=== PATIENT | female | born 1970 | race Caucasian/White ===

== ENCOUNTER 2022-09-14 08:13 | Day surgery (SDC) | payer OTHER ==
[2022-09-12 15:54] VITALS: BMI 28.2
[~2022-09-14 08:13] MED LIST: LACTATED RINGERS 1,000 ML IV SCH; LIDOCAINE 1% (10MG/ML) FOR IV START INTRADERMA PRN
[2022-09-14 08:34] VITALS: TEMP 98.9
[2022-09-14] MEDS ORDERED: PROPOFOL 10 MG/ML 20 ML VIAL IV ONE (09:08)
--- NOTE | 2022-09-14 09:25 | P.OP ---
Date of Procedure: 09/14/22 Preoperative Diagnosis: Screening colonoscopy Postoperative Diagnosis: Diverticulosis Procedure(s) Performed: Colonoscopy Anesthesia: MAC Surgeon: Ananda Ventura Pathology: none sent Condition: stable Disposition: PACU Description of Procedure: The patient's placed on the operating table in the lateral position. She received IV sedation. Digital rectal exam was performed. This revealed no abnormalities. The flexible colonoscope was then placed patient anus and passed throughout the entire colon. The ileocecal valve lesions. The cecum, ascending and transverse colon appeared normal. Descending and sigmoid had mild diverticular changes. Scope was brought back the rectum and this appeared no rmal. Scope withdrawn for patient.
[2022-09-14 09:42] VITALS: BP 119/75; PULSE 61; RESP 16
== END 2022-09-14 10:30 | disposition home or self-care (01) ==
LOC: ORWHC2ENDO 08:13
PROVIDERS: ATTEND Surgery
DX: Z12.11 Encounter for screening for malignant neoplasm of colon (principal); K57.30 Diverticulosis of large intestine without perforation or abscess without bleeding; E78.5 Hyperlipidemia, unspecified; Z87.891 Personal history of nicotine dependence
CPT/HCPCS: 45378; J2704

== ENCOUNTER 2024-11-17 07:10 | Day surgery (SDC) | payer OTHER ==
[2024-11-17] MEDS: ACETAMINOPHEN TAB 500 MG TAB PO PRN (07:38)
[2024-11-17] MEDS: IV FLUID CONTINUATION 1,000 ML IV ONE (07:52)
[2024-11-17] MEDS: DEXAMETHASONE SOD PHOSPHATE 4 MG/ML 1 ML VIAL IV ONE (07:54)
[2024-11-17] MEDS: HEPARIN SODIUM,PORCINE 5,000 UNIT/ML 1 ML VIAL SQ PRN (07:54)
[2024-11-17] MEDS: ONDANSETRON 4 MG/2 ML VIAL IVP ONE (07:54)
[2024-11-17] MEDS: LACTATED RINGERS 1,000 ML IV SCH (07:54)
[2024-11-17] MEDS ORDERED: PROPOFOL 10 MG/ML 20 ML VIAL IV ONE (09:00)
[2024-11-17] MEDS ORDERED: SUCCINYLCHOLINE CHLORIDE 200 MG/10 ML VIAL IV ONE (09:00)
[2024-11-17] MEDS ORDERED: KETAMINE HCL IN 0.9 % NACL 50 MG/5 ML SYRINGE ONE (09:00)
[2024-11-17] MEDS ORDERED: LIDOCAINE 1% INJ 10MG/ML (20 ML MDV) ONE (09:00)
[2024-11-17] MEDS ORDERED: fentaNYL (PF) 50 MCG/ML 2 ML AMP ONE (09:00)
[2024-11-17] MEDS ORDERED: GLYCOPYRROLATE 0.2 MG/ML 2 ML VIAL ONE (09:00)
[2024-11-17] MEDS ORDERED: ROCURONIUM 10 MG/ML (5 ML VIAL) IV ONE (09:00)
[2024-11-17] MEDS ORDERED: KETOROLAC 15 MG/ML 1 ML VIAL ONE (09:00)
[2024-11-17] MEDS ORDERED: MIDAZOLAM 2 MG/2 ML VIAL ONE (09:00)
[2024-11-17] MEDS ORDERED: LIDOCAINE 4% LTA KIT (4 ML) TOPICAL ONE (09:00)
[2024-11-17] MEDS ORDERED: NEOSTIGMINE 1 MG/ML 10 ML VIAL ONE (09:00)
[2024-11-17 10:11] VITALS: TEMP 97.8
--- NOTE | 2024-11-17 10:18 | P.OP ---
Date of Procedure: 11/17/24 Preoperative Diagnosis: Cholecystitis Postoperative Diagnosis: Cholecystitis Procedure(s) Performed: Laparoscopic cholecystectomy Anesthesia: KAIN Surgeon: Ananda Ventura Estimated Blood Loss (ml): 5 Pathology: other (Gallbladder) Condition: stable Disposition: PACU Description of Procedure: The patient was placed on the operating table. The patient received a general endotracheal tube anesthesia. The patients abdomen was prepped and draped in the usual sterile fashion. Through an infraumbilical stab incision, the fascia of the anterior abdominal wall was grasped with a pair of Kochers and then the Veress needle was placed in the peritoneal cavity. Position of the Veress needle was confirmed with positive drop test. The abdomen was then insufflated. After adequate insufflation, the 10 mm trocar was placed in the peritoneal cavity. Following this the laparoscope was placed in the peritoneal cavity. The patient was placed in the head-up, right side up position and then a 5 mm trocar was placed in the right lateral and right subcostal position under direct visualization. A 8 mm trocar was placed in the epigastric position. The gallbladder was grasped in the fundus and infundibulum. Traction on the gallbladder was placed in the lateral and the cephalad positions. The triangle of Calot was visualized.. The cystic duct was bluntly dissected until the union of the cystic duct and common bile duct was seen. A critical view of safety was achieved. The cystic duct was then divided and sealed with the Harmonic scissors. A PDS Endoloop was then placed throughout the cystic duct stump. The cystic artery divided and sealed with the Harmonic scissors. The gallbladder was then removed from the liver bed using Harmonic scissors. The gallbladder was then extracted through the epigastric port site. Operative field was checked for any bleeding spots and Harmonic scissors was used to coagulate the liver bed. The abdomen was irrigated. The trocars were removed. The skin was closed using interrupted 3-0 Vicryl suture. Dermabond dressing were applied. The patient tolerated the procedure well.
[2024-11-17 11:10] VITALS: RESP 16
[2024-11-17] MEDS: fentaNYL (PF) 50 MCG/ML 2 ML AMP IV PRN (11:42)
[2024-11-17] MEDS: droPERidol 2.5 MG/ML VIAL IVP ONE (11:49)
[2024-11-17 12:17] VITALS: BP 114/64; PULSE 54
== END 2024-11-17 13:06 | disposition home or self-care (01) ==
LOC: OR 07:10
PROVIDERS: ATTEND Surgery
DX: K80.10 Calculus of gallbladder with chronic cholecystitis without obstruction (principal); Z79.899 Other long term (current) drug therapy; Z87.891 Personal history of nicotine dependence; Z88.5 Allergy status to narcotic agent
CPT/HCPCS: 47562; 88304; J2250; J0330; J1644; J1100; J2710; J0690; J2405; J2003; J3010; J1885; J2704; J1596; J1790